=== PATIENT | female | born 1935 | race African-American/Black ===

== ENCOUNTER 2016-06-22 12:12 | Emergency (ER) | payer OTHER ==
--- NOTE | 2016-06-22 13:07 | ED EKG INTERP ---
EKG Interpretation - EKG Time of EKG reading by physician:: 12:25 EKG Read and Signed by:: Juan M Dooley EKG Interpretation (*Must complete 3 of following elements*): Abnormal Rate: 97 Rhythm: nsr [place]: normal QRS: other (left atrial enlargment) HI Interval: normal ST Wave: non-specific ST changes Attestation - Scribe Verification/Attestation Scribe:: Jewels Marin Acting as Scribe for:: Juan M Dooley Scribe documention review:: This chart was documented by a scribe and accurately reflects the service the provider performed and the decisions made by the provider. Physician Attestation - Physician Attestation I, the provider, attest to the following statement:: Juan M Dooley Physician documentation Attestation:: This documentation recorded by the scribe accurately reflects the service I personally performed and the decisions made by me.
--- NOTE | 2016-06-22 13:22 | EKG Report ---
Test Performed on : 06/22/2016 12:25:26 PM Test Reason : high BP/epigastric pain Blood Pressure : / mmHG Vent. Rate : 097 BPM Atrial Rate : 097 BPM P-R Int : 128 ms QRS Dur : 076 ms QT Int : 348 ms P-R-T Axes : 047 010 037 degrees QTc Int : 441 ms Normal sinus rhythm. Possible Left atrial enlargement Nonspecific T wave abnormality Abnormal ECG No previous ECGs available Unconfirmed Result
[2016-06-22 13:53] LABS: URINE CULTURE NEEDED? NO; URINE MICRO REVIEW NEEDED? NO; URINE SOURCE CLEAN CATCH
--- NOTE | 2016-06-22 13:53 | PROVIDER DOCUMENTATION ---
HPI-Abdominal Pain/GI Problem - General Source: patient - History of Present Illness-ABD Nature of Presenting Problems: 81 y/o F presents to ED cc of abd pain with n/v and hypertension. Pt states she has been seen by her PCP x 1 month where they have been adjusting her medication due to her hypertension not being controlled. Pt denies any chest pain, SOB, cough. Pt is alert and oriented x 3. Pt is in no distress. Abdominal Pain Onset Location: reports: generalized abdomen Pain Radiation: reports: no radiation Quality of Pain: reports: aching Onset/Duration: reports: gradual Timing: reports: still present Activities at Onset: reports: light activity Modifying Factors: improves with: nothing Associated Symptoms: reports: nausea, vomiting, other (abd pain/ hypertension). denies: arm pain, chest pain, cough, fever/chills, shortness of breath Last BM: unsure Dark Stools Present?: reports: none noticed Rectal Bleeding: reports: none Rectal Pain: reports: none Bruising or Bleeding Gums?: No Similar Symptoms Previously?: No Recently seen or treated by another doctor?: Yes (pcp) <Jewels Marin - Last Filed: 06/22/16 17:09> <Juan M Dooley I - Last Filed: 06/22/16 17:16> - General Chief Complaint: Abdominal Pain Stated Complaint: HIGH B/P,ABD PAIN,DIARRHEA Time Seen by Provider: 06/22/16 13:40 Allergies/Adverse Reactions: Patient Allergies Allergy/AdvReac Type Severity Reaction Status Date / Time No Known Allergies Allergy Verified 06/22/16 13:47 Home Medications: Home Medication List Medication Instructions Recorded Confirmed Last Taken Type Aspirin 81 mg PO DAILY 06/22/16 06/22/16 06/22/16 History Azilsartan Medoxomil [Edarbi] 80 mg PO BID 06/22/16 06/22/16 06/22/16 History Clonidine HCl 0.1 mg PO BID PRN 06/22/16 06/22/16 06/22/16 History Hydrochlorothiazide 12.5 mg PO DAILY 06/22/16 06/22/16 06/22/16 History Metformin [Glucophage] 500 mg PO BID CC 06/22/16 06/22/16 06/22/16 History Multivitamin [Multivitamins] 1 each PO BID 06/22/16 06/22/16 06/22/16 History Review of Systems - Adult - REVIEW OF SYSTEMS - ADULT Constitutional: denies: chills, fever Ears, Nose, Mouth & Throat: denies: ear pain, throat pain Cardiovascular: reports: other (hypertension). denies: chest pain, irregular heart rate, palpitations Respiratory: denies: cough, shortness of breath Gastrointestinal: reports: abdominal pain, nausea, vomiting. denies: constipation, diarrhea, rectal bleeding Musculoskeletal: denies: bone pain, back pain Neurological: denies: dizziness/vertigo, headache/migraines <Jewels Marin - Last Filed: 06/22/16 17:09> Past History - Adult - PAST MEDICAL HISTORY-ADULT Review of Records: reports: Old Records Reviewed, Nursing Assessment Review Cardiovascular: reports: HTN Endocrine/Immune: reports: Diabetes - PRIOR SURGERIES/PROCEDURES Surgical/Procedure History: reports: hysterectomy - IMMUNIZATION STATUS Childhood Immunizations: See Nurse Assessment Flu Vaccine: See Nurse Assessment - SOCIAL HISTORY Smoking: quit greater than 1 year Substance Use: denies <Jewels Marin - Last Filed: 06/22/16 17:09> Physical Exam-General - PHYSICAL EXAM-ADULT Initial Vital Signs Reviewed: Yes - CONSTITUTIONAL General Appearance: appears well, alert, no apparent distress - EYES Eyes: pink conjunctivae - HEAD, EARS, NOSE, MOUTH & THROAT HENMT: moist mucous membranes, normal ENT inspection - NECK Neck: non-tender, full range of motion - RESPIRATORY Respiratory: chest non-tender - CARDIOVASCULAR Cardiovascular: normal peripheral pulses, no edema, tachycardia - GASTROINTESTINAL (ABDOMEN) Abdominal Exam: normal bowel sounds, non tender, soft - MUSCULOSKELETAL Back Exam: normal inspection, no CVA tenderness, no vertebral tenderness - SKIN Integumentary: normal color, normal turgor, warm/dry - NEUROLOGIC Neurologic: grossly normal, no motor/sensory deficits - PSYCHIATRIC Psych/Mental Status: normal mood/affect, normal thought content, normal thought process, oriented x 3 <Jewels Marin - Last Filed: 06/22/16 17:09> Progress - PLAN OF CARE/RESULTS Progress/Plan/Lab Results: PLAN: MONITOR PT BP, LABS, CHEST XRAY , HEAD CT PT VERBALLY UNDERSTANDS THE PLAN. NURSES NOTIFIED OF PT BP BEING ELEVATED AND THAT PT IS COMPLAINING OF NAUSEA MEDICATIONS HAVE BEEN ORDERED FOR PT BP AND NAUSEA. Laboratory Tests 06/22/16 06/22/16 06/22/16 12:47 12:47 12:47 WBC 10.05 RBC 5.85 H Hgb 13.3 Hct 41.1 MCV 70.3 L MCH 22.7 L MCHC 32.4 L RDW Std Deviation 14.9 H Plt Count 301 MPV 11.0 H Immature Gran % (Auto) 0.2 Neut % (Auto) 62.4 Lymph % (Auto) 30.6 [place] % (Auto) 5.3 Eos % (Auto) 1.1 Baso % (Auto) 0.4 Immature Gran # (Auto) 0.02 Neut # (Auto) 6.27 Lymph # (Auto) 3.08 [place] # (Auto) 0.53 Eos # (Auto) 0.11 Baso # (Auto) 0.04 PT INR PTT (Actin FS) Sodium 136 Potassium 4.9 Chloride 95 L Carbon Dioxide 29 Anion Gap 12 BUN 9 Creatinine 0.8 Estimated GFR/1.73 m2 > 60 BUN/Creatinine Ratio 11 Glucose 148 H Calculated Osmolality 273 Calcium 10.0 Magnesium 1.8 Total Bilirubin 0.28 AST 21 ALT 18 Alkaline Phosphatase 95 Creatine Kinase 44 Troponin T Nlm-S-Pfzdhmwqqbi Pept Total Protein 7.5 Albumin 4.3 Globulin 3.2 Albumin/Globulin Ratio 1.3 Amylase 127 Lipase 23 Urine Source Urine Color Urine Turbidity Urine pH Ur Specific [place] Urine Protein Ur Glucose (Stick) Ur Ketones (Stick) Urine Blood Urine Nitrite Urine Bilirubin Urobilinogen Dipstick Urine Leukocytes Urine WBC (Auto) Urine RBC (Auto) U Epithel Cells (Auto) Urine Bacteria (Auto) 06/22/16 06/22/16 06/22/16 12:47 12:47 12:47 WBC RBC Hgb Hct MCV MCH MCHC RDW Std Deviation Plt Count MPV Immature Gran % (Auto) Neut % (Auto) Lymph % (Auto) [place] % (Auto) Eos % (Auto) Baso % (Auto) Immature Gran # (Auto) Neut # (Auto) Lymph # (Auto) [place] # (Auto) Eos # (Auto) Baso # (Auto) PT 10.6 INR 1.01 PTT (Actin FS) 27.0 Sodium Potassium Chloride Carbon Dioxide Anion Gap BUN Creatinine Estimated GFR/1.73 m2 BUN/Creatinine Ratio Glucose Calculated Osmolality Calcium Magnesium Total Bilirubin AST ALT Alkaline Phosphatase Creatine Kinase Troponin T < 0.010 Mxe-[id number]-Bdhjtyllwtx Pept 89 Total Protein Albumin Globulin Albumin/Globulin Ratio Amylase Lipase Urine Source Urine Color Urine Turbidity Urine pH Ur Specific [place] Urine Protein Ur Glucose (Stick) Ur Ketones (Stick) Urine Blood Urine Nitrite Urine Bilirubin Urobilinogen Dipstick Urine Leukocytes Urine WBC (Auto) Urine RBC (Auto) U Epithel Cells (Auto) Urine Bacteria (Auto) 06/22/16 13:03 WBC RBC Hgb Hct MCV MCH MCHC RDW Std Deviation Plt Count MPV Immature Gran % (Auto) Neut % (Auto) Lymph % (Auto) [place] % (Auto) Eos % (Auto) Baso % (Auto) Immature Gran # (Auto) Neut # (Auto) Lymph # (Auto) [place] # (Auto) Eos # (Auto) Baso # (Auto) PT INR PTT (Actin FS) Sodium Potassium Chloride Carbon Dioxide Anion Gap BUN Creatinine Estimated GFR/1.73 m2 BUN/Creatinine Ratio Glucose Calculated Osmolality Calcium Magnesium Total Bilirubin AST ALT Alkaline Phosphatase Creatine Kinase Troponin T Rzf-V-Pkjoziwcjcz Pept Total Protein Albumin Globulin Albumin/Globulin Ratio Amylase Lipase Urine Source CLEAN CATCH Urine Color STRAW Urine Turbidity CLEAR Urine pH 7.0 Ur Specific [place] 1.007 Urine Protein NEGATIVE Ur Glucose (Stick) NEGATIVE Ur Ketones (Stick) NEGATIVE Urine Blood NEGATIVE Urine Nitrite NEGATIVE Urine Bilirubin NEGATIVE Urobilinogen Dipstick NORMAL Urine Leukocytes NEGATIVE Urine WBC (Auto) <10 Urine RBC (Auto) <10 U Epithel Cells (Auto) <10 Urine Bacteria (Auto) NEGATIVE Orders Category Date Time Status NPO Diet 06/22/16 13:41 Active CHEST-2 VIEWS [RAD] Stat Exams 06/22/16 13:43 Completed HEAD W/O CONTRAST [CT] Stat Exams 06/22/16 13:45 Completed AMYLASE [CHEM] Stat Lab 06/22/16 12:47 Completed CBC WITH ELECTRONIC DIFF [HEME] Stat Lab 06/22/16 12:47 Completed CK PROFILE [SP CHEM] Stat Lab 06/22/16 12:47 Completed COMPREHENSIVE METABOLIC PANEL [CHEM] Stat Lab 06/22/16 12:47 Completed LIPASE [CHEM] Stat Lab 06/22/16 12:47 Completed MAGNESIUM [CHEM] Stat Lab 06/22/16 12:47 Completed PRO B-NATRIURETIC PEPTIDE Stat Lab 06/22/16 12:47 Completed PROTIME WITH INR [COAG] Stat Lab 06/22/16 12:47 Completed PTT [COAG] Stat Lab 06/22/16 12:47 Completed TROPONIN T Stat Lab 06/22/16 12:47 Completed URINALYSIS W/POSS RFLX CULT [URINALYSIS] Stat Lab 06/22/16 13:03 Completed Clonidine [Catapres] Med 06/22/16 14:33 Discontinued 0.1 mg .ROUTE .STK-MED ONE Clonidine [Catapres] Med 06/22/16 14:32 Discontinued 0.1 mg PO NOW ONE Nitroglycerin Sl [Nitroglycerin] Med 06/22/16 14:33 Discontinued 0.4 mg .ROUTE .STK-MED ONE Nitroglycerin Sl [Nitroglycerin] Med 06/22/16 14:32 Discontinued 0.4 mg SL NOW ONE Ondansetron Odt [Zofran Odt] Med 06/22/16 14:33 Discontinued 4 mg .ROUTE .STK-MED ONE Ondansetron Odt [Zofran Odt] Med 06/22/16 14:32 Discontinued 4 mg PO NOW ONE EKG [EKG] Stat Ther 06/22/16 12:25 Draft Vital Signs - 24 hr 06/22/16 06/22/16 06/22/16 12:22 14:31 14:56 Temperature 98 F Pulse Rate 96 H 82 94 H Respiratory 20 15 17 Rate Blood Pressure 206/100 214/128 174/94 O2 Sat by Pulse 100 96 97 Oximetry - REASSESSMENT Reassessment #1 Time Reassessed: 17:10 Status: improving ([place] is better, pt ready to go home, BP is 156/76 per nurse) - XRAY 1 XRAY: Bilateral XRAY Study: Chest Impression: Normal (The patient may have emphysema, otherwise negative exam.) XRAY Interpretation: See impression- Dr. Mendiola(radiologist) - CT/MRI 1 CT Study: Head Impression: Normal (1. No hemorrhage 2. mild chronic microvascular ischemic changes) CT Results: see impression - Dr. Lamar( Radiologist) <Jewels Marin - Last Filed: 06/22/16 17:09> Departure - Departure Time of Disposition Order: 17:12 Certified Medical Emergency: Emergent <Jewels Marin - Last Filed: 06/22/16 17:09> - Departure Time of Disposition Order: 17:16 Certified Medical Emergency: Emergent <Juan M Dooley I - Last Filed: 06/22/16 17:16> - Departure DIAGNOSIS: Nausea, Uncontrolled hypertension, Dizzy Disposition: HOME 01 Condition: Stable Additional Instructions: ED Follow Up Instructions: You have been treated by a care provider in the Emergency Department. These instructions are being provided to you so you can have an understanding of how to care for yourself upon discharge. Upon discharge from the Emergency Department, you are responsible for making arrangements for follow-up care by a physician of your choice. Take all prescribed medications as directed. Return to the Emergency Department immediately for any new or worsening symptoms. You may call the Physician Referral phone number at [phone] to obtain a list of Physicians who are taking new patients. Referrals: Esteban Suárez MD [Primary Care Provider] - Attestation - Scribe Verification/Attestation Scribe:: Jewels Marin Acting as Scribe for:: Juan M Dooley Scribe documention review:: This chart was documented by a scribe and accurately reflects the service the provider performed and the decisions made by the provider. <Jewels Marin - Last Filed: 06/22/16 17:09> - Physician/ BRYANT Attestation Patient care was provided by Advanced Practice Provider:: Yes Advanced Practice Provider documentation review:: The Mid-level provider documentation, treatment plan and medical decision making was reviewed by the physician who agrees with all treatment and medical decision making by the MLP. The physician spent face to face time with patient:: Yes Advanced Practice Provider documentation review:: The physician spent face to face time with this patient and agrees with all MLP documentation, treatment, and medical decision making by the MLP. See provider notes for further information. <Juan M Dooley I - Last Filed: 06/22/16 17:16> Physician Attestation - Physician Attestation I, the provider, attest to the following statement:: Juan M Dooley Physician documentation Attestation:: This documentation recorded by the scribe accurately reflects the service I personally performed and the decisions made by me. <Jewels Marin - Last Filed: 06/22/16 17:09> - Physician Attestation I, the provider, attest to the following statement:: Juan M Dooley Physician documentation Attestation:: This documentation recorded by the scribe accurately reflects the service I personally performed and the decisions made by me. <Juan M Dooley I - Last Filed: 06/22/16 17:16>
[2016-06-22 14:02] LABS: BILIRUBIN URINE NEGATIVE (NEGATIVE); BLOOD URINE NEGATIVE (NEGATIVE); COLOR STRAW; GLUCOSE URINE NEGATIVE (NEGATIVE); LEUKOCYTES URINE NEGATIVE (NEGATIVE); NITRITE URINE NEGATIVE (NEGATIVE); PROTEIN URINE NEGATIVE (NEGATIVE); SP GRAVITY URINE 1.007; TURBIDITY URINE CLEAR (CLEAR); UROBILINOGEN URINE NORMAL (NORMAL)
[2016-06-22 14:02] LABS: BASO% 0.4 % (0.0-0.8); EOS# 0.11 X1000 (0.0-0.7); EOS% 1.1 % (0.0-10.0); HEMATOCRIT 41.1 % (37.0-47.0); HEMOGLOBIN 13.3 g/dL (12.0-16.0); IMM GRAN# 0.02 X1000 (0.0-0.04); IMM GRAN% 0.2 % (0.0-0.5); LYMPH# 3.08 X1000 (1.2-3.4); LYMPH% 30.6 % (20.5-51.1); MANUAL DIFF NEEDED? NO; MCH 22.7 PG (27-31); MCHC 32.4 g/dL (33-37); MCV 70.3 FL (81-99); MONO# 0.53 X1000 (0.11-0.59); MONO% 5.3 % (1.7-9.3); NEUT% 62.4 % (42.2-75.2); PLT 301 X1000 (130-400); RBC 5.85 XMIL (4.2-5.4)
[2016-06-22 14:03] LABS: UR EPITHELIAL CELLS <10 /HPF (<10); URINE BACTERIA NEGATIVE /HPF; URINE RBC <10 /HPF (<10); URINE WBC <10 /HPF (<10)
[2016-06-22 14:07] LABS: INR 1.01; PROTIME 10.6 Seconds (9.2-11.7)
[2016-06-22 14:12] LABS: AGAP 12; ALBUMIN 4.3 g/dL (3.5-5.0); ALKALINE PHOSPHATASE 95 U/L (32-104); AMYLASE 127 U/L (20-200); BUN 9 mg/dL (8-22); CHLORIDE 95 mmol/L (98-107); COSMO 273; GOT 21 U/L (10-30); GPT 18 U/L (10-36); LIPASE 23 U/L (13-60); POTASSIUM 4.9 mmol/L (3.5-5.1); SODIUM 136 mmol/L (136-145); TCO2 29 mmol/L (25-35); TOTAL BILIRUBIN 0.28 mg/dL (0.20-1.00); TOTAL PROTEIN 7.5 g/dL (6.3-8.3)
[2016-06-22 14:13] LABS: MAGNESIUM 1.8 mg/dL (1.5-2.7)
[2016-06-22] MEDS ORDERED: NITROGLYCERIN SL ONE (14:32)
[2016-06-22] MEDS ORDERED: ZOFRAN ODT PO ONE (14:32)
[2016-06-22] MEDS ORDERED: CATAPRES PO ONE (14:32)
--- NOTE | 2016-06-22 14:32 | Diag Imaging Result Document ---
PROCEDURE NAME: CHEST-2 VIEWS - 06/22/2016 FRONTAL AND LATERAL CHEST, TWO VIEWS: FINDINGS: The lungs are hyperexpanded. The heart is not enlarged. The pulmonary vessels are small. No pneumonia. No pleural effusions. No free air beneath the diaphragm. IMPRESSION: The patient may have emphysema, otherwise negative exam.
--- NOTE | 2016-06-22 14:32 | Diag Imaging Result Document ---
PROCEDURE NAME: HEAD W/O CONTRAST - 06/22/2016 CT BRAIN WITHOUT CONTRAST. DOSE REDUCTION PROTOCOL: FINDINGS: No parenchymal hemorrhage. No epidural or subdural hematoma. No subarachnoid hemorrhage. No mass identified on this noncontrasted exam. No hydrocephalus. No sinus opacification. IMPRESSION: 1. No hemorrhage. 2. Mild chronic microvascular ischemic changes. A preliminary report was given at 2:11 p.m.
[2016-06-22] MEDS ORDERED: CATAPRES ONE (14:33)
[2016-06-22] MEDS ORDERED: NITROGLYCERIN ONE (14:33)
[2016-06-22] MEDS ORDERED: ZOFRAN ODT ONE (14:33)
[2016-06-22] MEDS ORDERED: ZOFRAN ONE (16:06)
[2016-06-22] MEDS ORDERED: ZOFRAN IV ONE ×2 (16:08→17:28)
[2016-06-22 17:12] VITALS: BP 158/80
== END 2016-06-22 17:38 | disposition home or self-care (01) ==
LOC: ED 12:12
DX: R11.2 Nausea with vomiting, unspecified (principal); R42 Dizziness and giddiness; I10 Essential (primary) hypertension; R94.31 Abnormal electrocardiogram [ECG] [EKG]; R94.09 Abnormal results of other function studies of central nervous system; R10.84 Generalized abdominal pain; R19.7 Diarrhea, unspecified; R00.0 Tachycardia, unspecified; Z79.899 Other long term (current) drug therapy; E11.9 Type 2 diabetes mellitus without complications; Z79.82 Long term (current) use of aspirin; Z87.891 Personal history of nicotine dependence
CPT/HCPCS: 36415; 70450; 71020; 80053; 81001; 82150; 82550; 83690; 83735; 83880; 84484; 85025; 85610; 85730; 93005; 96374; 96376; J2405